=== PATIENT | male | born 1990 | race African-American/Black ===

== ENCOUNTER 2021-09-25 16:16 | Inpatient (IN) ==
[2021-09-26] MEDS ORDERED: LABETALOL 20 MG/4 ML SYRINGE IV ONE (00:47)
[2021-09-26 01:10] LABS: Basophils % 0.2 % (0.0-0.8); Hemoglobin 8.8 GM/DL (14.0-18.0); Immature Granulocytes % 0.5 %; Immature Granulocytes Absolute 0.07 #; Lymphocytes # 1.4 10*3/uL (1.4-4.0); Lymphocytes % 10.8 % (21.2-54.2); Mean Corpuscular HGB Conc 32.6 GM/DL (32-36); Mean Corpuscular Volume 76.7 FL (87-102); Mean Platelet Volume 9.6 FL (9.6-12.0); Monocytes % 6.4 % (1.7-12.7); Neutrophils % 82.1 % (38.7-73.9); Platelet Count 139 T/CUMM (130-400); Red Blood Count 3.52 MC/CUMM (3.8-5.5); Red Cell Distribution Width 18.8 % (9.3-17.3); White Blood Count 13.2 T/CUMM (4-12)
[2021-09-26 01:20] LABS: ABG Base Excess 0.6 MMOL/L (-2.5-2.5); ABG Oxygen Saturation 98.4 % (95-100); ABG PCO2 43.1 MM HG (35-48); ABG PH 7.385 (7.35-7.45); ABG TCO2 23.8 MMOL/L (23-27)
[2021-09-26 01:51] LABS: Albumin 2.7 G/DL (3.4-5.0); Bilirubin,Total 0.7 MG/DL (0.20-1.00); Calcium 8.2 MG/DL (8.5-10.1); Osmolality,Calculated 297.2 MOS/KG (273-304); Potassium 4.5 MMOL/L (3.5-5.1); Total Protein 7.3 G/DL (6.4-8.2)
[2021-09-26] MEDS ORDERED: FUROSEMIDE 40 MG/4 ML VIAL IV ONE (01:54)
[2021-09-26] MEDS ORDERED: MORPHINE 2 MG/1 ML SYRINGE IV PRN (01:54)
[2021-09-26] MEDS ORDERED: GLUCAGON 1 MG VIAL IM PRN (02:01)
[2021-09-26] MEDS ORDERED: DEXTROSE 50% 25 GM/50 ML VIAL IV PRN (02:01)
[2021-09-26] MEDS ORDERED: INSULIN REGULAR 100 UNIT/ML IV ONE ×2 (02:01→06:33)
[2021-09-26] MEDS: hydrALAZINE 20 MG/1 ML VIAL IV PRN (02:14)
[2021-09-26] MEDS: amLODIPine 10 MG TABLET PO SCH ×2 (02:14→08:09)
[2021-09-26] MEDS: carvediloL 25 MG TABLET PO SCH ×3 (02:14→21:37)
[2021-09-26] MEDS: PIPERACILLIN/TAZOBACTAM 3,375 MG in SODIUM CHLORIDE 0.9% 100 ML IV SCH ×2 (05:38→16:50)
[2021-09-26] MEDS ORDERED: INSULIN LISPRO 100 UNIT/ML SUBCUT SCH (06:00)
[2021-09-26 08:04] LABS: Calcium 8.3 MG/DL (8.5-10.1); Osmolality,Calculated 307.2 MOS/KG (273-304); Potassium 3.8 MMOL/L (3.5-5.1)
[2021-09-26] MEDS: FUROSEMIDE 80 MG TABLET PO SCH ×2 (08:09→21:37)
[2021-09-26] MEDS: PANTOPRAZOLE 40 MG TABLET PO SCH (08:09)
[2021-09-26] MEDS: ISOSORBIDE MONONITRATE 60 MG TABLET PO SCH (08:09)
[2021-09-26] MEDS: ATORVASTATIN 40 MG TABLET PO SCH (08:09)
[2021-09-26] MEDS: HEPARIN 5,000 UNIT/1 ML VIAL SUBCUT SCH ×2 (08:10→21:38)
[2021-09-26] MEDS ORDERED: INSULIN GLARGINE 100 UNIT/ML SUBCUT SCH (09:00)
[2021-09-26] MEDS ORDERED: FAMOTIDINE 20 MG TABLET PO SCH (09:00)
[2021-09-26] MEDS: INSULIN LISPRO 100 UNIT/ML SUBCUT SCH ×3 (12:02→21:47)
[2021-09-26] MEDS: ACETAMINOPHEN 325 MG TABLET PO PRN (15:50)
[2021-09-26 20:02] LABS: Hepatitis B Core IgM Quant 0.06 Index; Hepatitis B Surface Ag Quant < 0.10 Index; Hepatitis B Surface Ag Result Non-Reactive (NonReactive); Hepatitis C Virus Ab Quant 0.08 Index; Hepatitis C Virus Ab Result Non-Reactive (NonReactive)
[2021-09-26] MEDS: VALSARTAN 160 MG TABLET PO SCH (21:37)
[2021-09-27] MEDS: LOPERAMIDE 2 MG CAPSULE PO PRN ×2 (00:31→16:04)
[2021-09-27] MEDS: hydrALAZINE 20 MG/1 ML VIAL IV PRN ×2 (03:09→10:15)
[2021-09-27 04:57] LABS: Basophils % 0.1 % (0.0-0.8); Eosinophils # 0.1 10*3/uL (0.0-0.87); Eosinophils % 1.1 % (0.00-10.9); Hematocrit 24.8 VOL% (42.0-52.0); Hemoglobin 7.9 GM/DL (14.0-18.0); Immature Granulocytes % 0.4 %; Immature Granulocytes Absolute 0.04 #; Lymphocytes # 1.4 10*3/uL (1.4-4.0); Lymphocytes % 13.3 % (21.2-54.2); Mean Corpuscular HGB Conc 31.9 GM/DL (32-36); Mean Corpuscular Volume 77.5 FL (87-102); Mean Platelet Volume 10.1 FL (9.6-12.0); Monocytes % 6.7 % (1.7-12.7); Neutrophils % 78.4 % (38.7-73.9); Platelet Count 137 T/CUMM (130-400); White Blood Count 10.1 T/CUMM (4-12)
[2021-09-27 05:15] LABS: Albumin 2.6 G/DL (3.4-5.0); Bilirubin,Total 0.9 MG/DL (0.20-1.00); Calcium 8.3 MG/DL (8.5-10.1); Osmolality,Calculated 281.2 MOS/KG (273-304); Potassium 3.9 MMOL/L (3.5-5.1); Total Protein 7.3 G/DL (6.4-8.2)
[2021-09-27 05:17] LABS: % Iron Saturation 27.6 % (18-50); Ferritin 1854.7 ng/mL (26-388)
[2021-09-27] MEDS: PIPERACILLIN/TAZOBACTAM 3,375 MG in SODIUM CHLORIDE 0.9% 100 ML IV SCH ×2 (05:17→17:44)
[2021-09-27] MEDS: ACETAMINOPHEN 325 MG TABLET PO PRN (05:17)
[2021-09-27 05:33] LABS: Risk Ratio 2.69; VLDL Cholesterol 19.8 MG/DL
[2021-09-27] MEDS: carvediloL 25 MG TABLET PO SCH ×2 (08:42→20:50)
[2021-09-27] MEDS: amLODIPine 10 MG TABLET PO SCH (08:42)
[2021-09-27] MEDS: ISOSORBIDE MONONITRATE 60 MG TABLET PO SCH (08:43)
[2021-09-27] MEDS: FUROSEMIDE 80 MG TABLET PO SCH (08:43)
[2021-09-27] MEDS: PANTOPRAZOLE 40 MG TABLET PO SCH (08:43)
[2021-09-27] MEDS: HEPARIN 5,000 UNIT/1 ML VIAL SUBCUT SCH ×2 (08:43→20:50)
[2021-09-27] MEDS: INSULIN GLARGINE 100 UNIT/ML SUBCUT SCH (08:43)
[2021-09-27] MEDS: ATORVASTATIN 40 MG TABLET PO SCH (08:44)
[2021-09-27] MEDS: INSULIN LISPRO 100 UNIT/ML SUBCUT SCH ×4 (08:53→20:50)
[2021-09-27] MEDS ORDERED: HEPARIN 10,000 UNIT/10 ML VIAL IV SCH (09:45)
[2021-09-27] MEDS: VALSARTAN 160 MG TABLET PO SCH (20:50)
[2021-09-28] MEDS: LOPERAMIDE 2 MG CAPSULE PO PRN (03:34)
[2021-09-28 03:59] LABS: Basophils % 0.5 % (0.0-0.8); Eosinophils # 0.3 10*3/uL (0.0-0.87); Eosinophils % 4.2 % (0.00-10.9); Hematocrit 27.3 VOL% (42.0-52.0); Hemoglobin 8.4 GM/DL (14.0-18.0); Immature Granulocytes % 0.5 %; Immature Granulocytes Absolute 0.03 #; Lymphocytes # 1.3 10*3/uL (1.4-4.0); Lymphocytes % 19.8 % (21.2-54.2); Mean Corpuscular HGB Conc 30.8 GM/DL (32-36); Mean Corpuscular Volume 78.7 FL (87-102); Mean Platelet Volume 9.1 FL (9.6-12.0); Monocytes % 9.3 % (1.7-12.7); Neutrophils % 65.7 % (38.7-73.9); Platelet Count 154 T/CUMM (130-400); Red Blood Count 3.47 MC/CUMM (3.8-5.5); Red Cell Distribution Width 19.2 % (9.3-17.3); White Blood Count 6.7 T/CUMM (4-12)
[2021-09-28 04:15] LABS: Osmolality,Calculated 280.2 MOS/KG (273-304); Potassium 4.2 MMOL/L (3.5-5.1)
[2021-09-28] MEDS: PIPERACILLIN/TAZOBACTAM 3,375 MG in SODIUM CHLORIDE 0.9% 100 ML IV SCH (04:24)
[2021-09-28] MEDS: INSULIN LISPRO 100 UNIT/ML SUBCUT SCH ×2 (09:11→11:56)
[2021-09-28] MEDS: carvediloL 25 MG TABLET PO SCH (09:12)
[2021-09-28] MEDS: ATORVASTATIN 40 MG TABLET PO SCH (09:12)
[2021-09-28] MEDS: PANTOPRAZOLE 40 MG TABLET PO SCH (09:12)
[2021-09-28] MEDS: amLODIPine 10 MG TABLET PO SCH (09:12)
[2021-09-28] MEDS: INSULIN GLARGINE 100 UNIT/ML SUBCUT SCH (09:12)
[2021-09-28] MEDS: ISOSORBIDE MONONITRATE 60 MG TABLET PO SCH (09:13)
[2021-09-28] MEDS: HEPARIN 5,000 UNIT/1 ML VIAL SUBCUT SCH ×2 (09:13→09:22)
== END 2021-09-28 11:42 | disposition home or self-care (01) | DRG 640 ==
LOC: N.CC 09-26 00:40 → SUATTDRO 09-26 00:40
PROVIDERS: ADMIT Internal Medicine; ATTEND Internal Medicine